=== PATIENT | female | born 1970 | race Caucasian/White ===

== ENCOUNTER 2017-06-21 12:37 | Emergency (ER) | payer MEDICARE, OTHER ==
[~2017-06-21] VITALS: Ht 167.6 cm; Wt 125.6 kg
[~2017-06-21 12:37] MED LIST: ABILIFY MAINTE400 M1 IM; ABILIFY MAINTE400 MG PO; ADULT LOW DOSE81 MG PO; ADVAIR 250-501 EACH INH; ALLOPURINOL300 MG PO; CALCIUM 500 +1 EAC2 PO; DAILY MULTIPLE1 EACH PO; DOXYCYCLINE HY100 M3 PO; FUROSEMIDE40 MG PO; GUAIFENESIN AC473 ML PO; HYDROCODON-ACE1 EA10 PO; IBUPROFEN200 M1 PO; IBUPROFEN800 MG PO; METFORMIN HCL1000 MG PO; MINIPRESS1 MG PO; NITROSTAT0.4 MG SL; NORCO 5-325 TA1 EACH PO; OCUFLOX5 ML OD; OXCARBAZEPINE300 MG PO; POTASSIUM CHLO10 ME1 PO; PRAZOSIN HCL2 MG PO; PREDNISONE20 MG PO; SOMA250 MG PO; TOPIRAMATE100 MG PO; TRILEPTAL300 MG PO; VENTOLIN HFA18 GM INH; ZOLOFT50 MG PO
[2017-06-21] MEDS ORDERED: ABILIFY MAINTE400 M1 IM (12:50)
== END 2017-06-21 13:03 | disposition home or self-care (01) ==
LOC: ED 12:37
DX: M54.5 Low back pain (principal); Z00.8 Encounter for other general examination

== ENCOUNTER 2017-07-14 12:32 | Emergency (ER) | payer MEDICARE ==
[~2017-07-14] VITALS: Ht 167.6 cm; Wt 125.6 kg
--- NOTE | 2017-07-14 20:42 | EKG ---
[facility] [address] [facility] [place] [address] Signed Normal sinus rhythm Normal ECG When compared with ECG of 04-FEB-2017 06:59, No significant change was found Confirmed by KARINA CHÁVEZ MD ([id number]) on 07/14/2017 8:42:48 PM Electronically Signed By: KARINA CHÁVEZ MD 07/14/172041 PATIENT NAME: WALDO HAMILTON ABI Electrocardiogram DATE OF : 70 PHYSICIAN: KARINA CHÁVEZ MD REPORT #: [id number] REPORT IS CONFIDENTIAL AND NOT TO BE RELEASED WITHOUT AUTHORIZATION
== END 2017-07-14 15:14 | disposition home or self-care (01) ==
LOC: ED 12:32
DX: E11.65 Type 2 diabetes mellitus with hyperglycemia (principal); F41.9 Anxiety disorder, unspecified; J44.9 Chronic obstructive pulmonary disease, unspecified; I10 Essential (primary) hypertension; F31.9 Bipolar disorder, unspecified; F17.200 Nicotine dependence, unspecified, uncomplicated; E11.40 Type 2 diabetes mellitus with diabetic neuropathy, unspecified; Z86.14 Personal history of Methicillin resistant Staphylococcus aureus infection; Z98.51 Tubal ligation status; Z90.712 Acquired absence of cervix with remaining uterus; Z88.8 Allergy status to other drugs, medicaments and biological substances; Z79.84 Long term (current) use of oral hypoglycemic drugs; Z79.82 Long term (current) use of aspirin; Z79.899 Other long term (current) drug therapy
CPT/HCPCS: 71010; 80053; 84484; 85025; 93005; 93010; 96361; 96374; 99283; J2405; J7030

== ENCOUNTER 2017-09-05 08:42 | Emergency (ER) | payer MEDICARE ==
[~2017-09-05] VITALS: Ht 167.6 cm; Wt 134.3 kg
[2017-09-05] MEDS ORDERED: NAPROXEN500 MG PO (15:05)
[2017-09-05] MEDS ORDERED: ONDANSETRON ODT4 MG SL (15:05)
== END 2017-09-05 16:17 | disposition home or self-care (01) ==
LOC: ED 08:42
DX: R10.2 Pelvic and perineal pain (principal); R11.0 Nausea; F17.200 Nicotine dependence, unspecified, uncomplicated; Z98.51 Tubal ligation status; Z90.710 Acquired absence of both cervix and uterus; Z88.8 Allergy status to other drugs, medicaments and biological substances
CPT/HCPCS: 74177; 76856; 83690; 96361; 96374; 96375; 99284; J0780; J1200; J1885; J7030; Q9967

== ENCOUNTER 2017-10-06 00:58 | Emergency (ER) | payer MEDICARE ==
[~2017-10-06] VITALS: Ht 167.6 cm; Wt 134.3 kg
[~2017-10-06 00:58] MED LIST changes: +NAPROXEN500 MG PO; +ONDANSETRON ODT4 MG SL
[2017-10-06] MEDS ORDERED: CEPHALEXIN500 MG PO (02:24)
[2017-10-06] MEDS ORDERED: GUAIFENESIN AC473 ML PO (02:24)
== END 2017-10-06 02:35 | disposition home or self-care (01) ==
LOC: ED 00:58
DX: J11.1 Influenza due to unidentified influenza virus with other respiratory manifestations (principal); H66.91 Otitis media, unspecified, right ear; J45.909 Unspecified asthma, uncomplicated; E11.40 Type 2 diabetes mellitus with diabetic neuropathy, unspecified; I10 Essential (primary) hypertension; F31.9 Bipolar disorder, unspecified; F41.9 Anxiety disorder, unspecified; F43.10 Post-traumatic stress disorder, unspecified; F17.200 Nicotine dependence, unspecified, uncomplicated; Z88.8 Allergy status to other drugs, medicaments and biological substances
CPT/HCPCS: 71046; 99283

== ENCOUNTER 2017-11-26 17:14 | Emergency (ER) | payer MEDICARE ==
[~2017-11-26] VITALS: Ht 167.6 cm; Wt 134.3 kg
[~2017-11-26 17:14] MED LIST changes: +CEPHALEXIN500 MG PO
--- NOTE | 2017-11-27 14:27 | EKG ---
[facility] [address] [facility] [place] [address] Signed Sinus tachycardia Incomplete right bundle branch block Borderline ECG When compared with ECG of 14-JUL-2017 13:07, Incomplete right bundle branch block is now present Confirmed by KARINA CHÁVEZ MD ([id number]) on 11/27/2017 2:27:06 PM Electronically Signed By: KARINA CHÁVEZ MD 11/27/17 1427 PATIENT NAME: ALFONSOWALDO Electrocardiogram DATE OF : 70 PHYSICIAN: KARINA CHÁVEZ MD REPORT #: [id number] REPORT IS CONFIDENTIAL AND NOT TO BE RELEASED WITHOUT AUTHORIZATION
== END 2017-11-26 22:55 | disposition home or self-care (01) ==
LOC: ED 17:14
DX: R07.89 Other chest pain (principal); J44.9 Chronic obstructive pulmonary disease, unspecified; E11.40 Type 2 diabetes mellitus with diabetic neuropathy, unspecified; I10 Essential (primary) hypertension; F31.9 Bipolar disorder, unspecified; F41.9 Anxiety disorder, unspecified; F43.10 Post-traumatic stress disorder, unspecified; F17.200 Nicotine dependence, unspecified, uncomplicated; Z88.8 Allergy status to other drugs, medicaments and biological substances; Z79.899 Other long term (current) drug therapy; Z79.2 Long term (current) use of antibiotics
CPT/HCPCS: 71045; 80053; 84484; 85025; 85379; 93005; 93010; 96374; 96376; 99284; J2060

== ENCOUNTER 2018-01-10 11:34 | Emergency (ER) | payer MEDICARE ==
[~2018-01-10] VITALS: Ht 167.6 cm; Wt 128.4 kg
[2018-01-10] MEDS ORDERED: TOPIRAMATE50 MG PO (11:54)
[2018-01-10] MEDS ORDERED: LORAZEPAM0.5 MG PO (11:54)
[2018-01-10] MEDS ORDERED: IPRAT-ALBUT 0.5-3 ML INH (11:55)
[2018-01-10] MEDS ORDERED: ADVAIR 250-501 EACH INH (11:55)
[2018-01-10] MEDS ORDERED: METFORMIN HCL500 MG PO (11:55)
[2018-01-10] MEDS ORDERED: OXCARBAZEPINE300 MG PO (11:55)
[2018-01-10] MEDS ORDERED: KEFLEX500 MG PO (13:29)
[2018-01-10] MEDS ORDERED: NORCO 7.5-3251 EACH PO (13:29)
== END 2018-01-10 13:40 | disposition home or self-care (01) ==
LOC: ED 11:34
DX: L03.115 Cellulitis of right lower limb (principal); E11.40 Type 2 diabetes mellitus with diabetic neuropathy, unspecified; J44.9 Chronic obstructive pulmonary disease, unspecified; I10 Essential (primary) hypertension; F31.9 Bipolar disorder, unspecified; F41.9 Anxiety disorder, unspecified; F43.10 Post-traumatic stress disorder, unspecified; F17.200 Nicotine dependence, unspecified, uncomplicated; Z88.8 Allergy status to other drugs, medicaments and biological substances; Z79.899 Other long term (current) drug therapy; Z79.84 Long term (current) use of oral hypoglycemic drugs
CPT/HCPCS: 93971; 99284

== ENCOUNTER 2018-01-14 20:56 | Emergency (ER) | payer MEDICARE ==
[~2018-01-14] VITALS: Ht 167.6 cm; Wt 128.4 kg
[~2018-01-14 20:56] MED LIST changes: +IPRAT-ALBUT 0.5-3 ML INH; +KEFLEX500 MG PO; +LORAZEPAM0.5 MG PO; +METFORMIN HCL500 MG PO; +NORCO 7.5-3251 EACH PO; +TOPIRAMATE50 MG PO
== END 2018-01-15 02:03 | disposition home or self-care (01) ==
LOC: ED 20:56
DX: L03.115 Cellulitis of right lower limb (principal); J44.9 Chronic obstructive pulmonary disease, unspecified; E11.40 Type 2 diabetes mellitus with diabetic neuropathy, unspecified; I10 Essential (primary) hypertension; F17.200 Nicotine dependence, unspecified, uncomplicated; Z88.8 Allergy status to other drugs, medicaments and biological substances; Z79.899 Other long term (current) drug therapy
CPT/HCPCS: 80053; 81001; 85025; 96361; 96374; 96375; 99284; J2405; J3370; J7030

== ENCOUNTER 2018-01-24 11:34 | Emergency (ER) | payer MEDICARE ==
[~2018-01-24] VITALS: Ht 167.6 cm; Wt 128.4 kg
[2018-01-24] MEDS ORDERED: NAPROXEN500 MG PO (11:47)
[2018-01-24] MEDS ORDERED: BACTRIM DS TAB1 EACH PO (11:47)
== END 2018-01-24 13:27 | disposition home or self-care (01) ==
LOC: ED 11:34
DX: L03.115 Cellulitis of right lower limb (principal); R60.0 Localized edema; J44.9 Chronic obstructive pulmonary disease, unspecified; E11.9 Type 2 diabetes mellitus without complications; I10 Essential (primary) hypertension; F17.200 Nicotine dependence, unspecified, uncomplicated; Z88.8 Allergy status to other drugs, medicaments and biological substances; Z79.84 Long term (current) use of oral hypoglycemic drugs; Z79.899 Other long term (current) drug therapy
CPT/HCPCS: 36415; 80053; 85025; 93971; 99284

== ENCOUNTER 2018-11-06 16:53 | Emergency (ER) | payer MEDICARE ==
[~2018-11-06] VITALS: Ht 167.6 cm; Wt 128.4 kg
[~2018-11-06 16:53] MED LIST changes: +BACTRIM DS TAB1 EACH PO
--- OUTSIDE RECORDS SUMMARY | 2018-11-06 16:56 | XMS ---
PreManage Notification: WALDO HAMILTON Security Claims Manager Events No recent Security Events currently on file CRITERIA MET - Group Notification - [facility] Guidelines - [facility] CARE PROVIDERS EREN ADAMES Nurse Practitioner: 07/24/2018-Current PHONE: Unknown GARETH RESTREPO Case or Assistant Hairstylist Current PHONE: [phone] Eren Brambila Current PHONE: [phone] [facility] Current PHONE: Unknown Guidelines Source: [facility] Guidelines Date: 02/01/2018 Care Coordination: PCP EREN JEFFERY - [facility] PER PCP -\T\nbsp; PATIENT IS TO CALL CLINIC OR USE CLINIC WALK-IN FOR CHRONIC LEG ISSUES.\T\nbsp; IF PATIENT CHECKS INTO ED DURING BUSINESS HOURS, PLEASE CALL PROVIDER OR HIS MANDY THOMAS AT [phone]. OR CALL CLINIC OCTAVIA SERVIN AT [phone]. Care History Medical/Surgical 07/24/2018 [facility] - Patient is currently established with [facility]. If patient is seen in the ED during business hours. Please contact CHWs at [facility]. Care Recommendation: This patient has had 5 or more Emergency Department visits in the last 12 months.\T\nbsp; Patient requires education on the scope and purpose of the ED as an acute care provider not a Primary Care Provider and should not be utilized for chronic conditions.\T\nbsp;These are guidelines and the provider should exercise clinical judgment when providing care E.D. VISIT COUNT (12 MO.) [address] [place] [facility]. TOTAL 7 NOTE: Visits indicate total known visits. ED/UCC VISIT TRACKING (12 MO.) 11/06/2018 16:54 TREVOR Funez TYPE: Emergency COMPLAINT: - VOMITTING/DIARRHEA/VISION PROBLEM 07/23/2018 18:57 TREVOR Funez TYPE: Emergency COMPLAINT: - COUGH DIAGNOSES: - Other moth exterminator (current) drug therapy - Type 2 diabetes mellitus without complications - Chronic obstructive pulmonary disease with (acute) exacerbation - Cough - Nicotine dependence, unspecified, uncomplicated - Essential (primary) hypertension 02/16/2018 11:06 [facility] Verónica DWYER TYPE: Emergency DIAGNOSES: - Leg pain and redness - Leg Pain (Non-traumatic) - Tobacco use - Tobacco abuse counseling - Edema, unspecified 01/24/2018 11:34 [facility] [place]icio[place] TYPE: Emergency COMPLAINT: - R LEG SWELLING/NO INJURY DIAGNOSES: - Other specified soft tissue disorders - Nicotine dependence, unspecified, uncomplicated - Localized edema - Allergy status to other drugs, medicaments and biological substances status - Type 2 diabetes mellitus without complications - Essential (primary) hypertension - Cellulitis of right lower limb - 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 - Chronic obstructive pulmonary disease, unspecified - Other moth exterminator (current) drug therapy 01/14/2018 20:58 TREVOR Rodriguez [place] TYPE: Emergency COMPLAINT: - R LEG INFECTION DIAGNOSES: - Allergy status to other drugs, medicaments and biological substances status - Cellulitis of right lower limb - Essential (primary) hypertension - Other specified soft tissue disorders - Type 2 diabetes mellitus with diabetic neuropathy, unspecified - Chronic obstructive pulmonary disease, unspecified - Nicotine dependence, unspecified, uncomplicated - Other usp (current) drug therapy 01/10/2018 11:35 [facility] [place] TYPE: Emergency COMPLAINT: - R FOOT PAIN/NO INJURY DIAGNOSES: - Nicotine dependence, unspecified, uncomplicated - Type 2 diabetes mellitus with diabetic neuropathy, unspecified - Chronic obstructive pulmonary disease, unspecified - Bipolar disorder, unspecified - Other usp (current) drug therapy - Cellulitis of right lower limb - LONGTERM (CURRENT) USE OF ORAL HYPOGLYCEMIC DRUGS - Allergy status to other drugs, medicaments and biological substances status - Post-traumatic stress disorder, unspecified - Essential (primary) hypertension - Anxiety disorder, unspecified 11/26/2017 17:14 [facility] [place] TYPE: Emergency COMPLAINT: - CHEST PAIN DIAGNOSES: - Other chest pain - Anxiety disorder, unspecified - Nicotine dependence, unspecified, uncomplicated - Essential (primary) hypertension - senior living (current) use of antibiotics - Bipolar disorder, unspecified - Post-traumatic stress disorder, unspecified - Other usp (current) drug therapy - Type 2 diabetes mellitus with diabetic neuropathy, unspecified - Allergy status to other drugs, medicaments and biological substances status - Chronic obstructive pulmonary disease, unspecified INPATIENT VISIT TRACKING (12 MO.) No inpatient visits to display in this time frame [email or web address]
[2018-11-06] MEDS ORDERED: ALLOPURINOL100 MG PO (17:16)
[2018-11-06] MEDS ORDERED: CALCIUM 500 +1 EAC2 PO (17:17)
[2018-11-06] MEDS ORDERED: LISINOPRIL10 MG PO (17:17)
[2018-11-06] MEDS ORDERED: CHILDREN'S ASPI81 M1 PO (17:17)
[2018-11-06] MEDS ORDERED: ZOFRAN4 MG SL (18:38)
[2018-11-06] MEDS ORDERED: LOMOTIL TABLET1 EACH PO (18:38)
== END 2018-11-06 18:50 | disposition home or self-care (01) ==
LOC: ED 16:53
DX: B34.9 Viral infection, unspecified (principal); J44.9 Chronic obstructive pulmonary disease, unspecified; G47.30 Sleep apnea, unspecified; E11.40 Type 2 diabetes mellitus with diabetic neuropathy, unspecified; F31.9 Bipolar disorder, unspecified; F41.9 Anxiety disorder, unspecified; F43.10 Post-traumatic stress disorder, unspecified; F17.200 Nicotine dependence, unspecified, uncomplicated; Z90.710 Acquired absence of both cervix and uterus; Z88.8 Allergy status to other drugs, medicaments and biological substances; Z79.82 Long term (current) use of aspirin; Z79.899 Other long term (current) drug therapy
CPT/HCPCS: 71045; 80053; 81001; 83690; 85025; 87502; 96361; 96374; 96375; 99283-25; 99406; C9113; J2405; J2550; J7030